=== PATIENT | female | born 2000 | race Caucasian/White ===

== ENCOUNTER 2020-04-05 00:01 | Emergency (ER) | payer SELFPAY ==
[2020-04-05 03:09] LABS: Pregnancy Test - Urine (BHCG) Negative (Negative); Pregu Control Background? CLEAR/WHITE (CLR/WHITE); Pregu Control Bar Appear? YES (CONTROL BAR); Specific Gravity 1.032 (1.002-1.036)
[2020-04-05 03:10] LABS: Bacteria/HPF None Seen HPF (None Seen); Bilirubin Negative (Negative); Blood, Urine Negative (Negative); Clarity Clear (Clear); Glucose, Urine (Dipstick) Normal (Negative); Ketone, Urine Negative (Negative); Leukocyte Negative Leu/uL (Negative); Nitrite Negative (Negative); Protein, Urine (Dipstick) 30 mg/dL (Neg-Trace); RBC/HPF 0-3 HPF (0-3); Specific Gravity, Urine 1.032 (1.002-1.036); Urobilinogen Normal mg/dL (Less than 2); WBC/HPF 0-3 HPF (0-3)
[2020-04-05] MEDS ORDERED: Cyclobenzaprine 10 MG TAB ONE (03:30)
[2020-04-05] MEDS ORDERED: Ibuprofen 200 MG TAB ONE (03:30)
== END 2020-04-05 03:33 | disposition home or self-care (01) ==
LOC: ERS 00:01
DX: M54.5 Low back pain (principal)
CPT/HCPCS: 81003; 81015; 81025; 99283